=== PATIENT | male | born 1990 | race Hispanic/Latino ===

== ENCOUNTER 2018-06-25 21:55 | Emergency (ER) | payer SELFPAY ==
[2018-06-25 22:02] VITALS: BP 127/78; TEMP 98.1; O2SAT 96
--- NOTE | 2018-06-25 22:31 | ED PDOC ---
HPI: Psych/Substance Abuse Time Seen by Provider: 06/25/18 22:13 Chief Complaint (Nursing): Alcohol Ingestion Chief Complaint (Provider): Alcohol Intoxication ED Caveat: Intoxicated History Per: Patient, EMS ([facility]) History/Exam Limitations: intoxication Additional Complaint(s): Patient is a 27 year old male who presents to ED for evaluation of alcohol intoxication. Patient was found stumbling on the streets and was seen walking into a street sign by EMS. When EMS stopped the patient, he could not ambulate steadily, prompting ED evaluation. Patient admits to drinking "a lot of whiskey, too much whiskey". Patient has no physical complaints and denies substance abuse. Denies head injury, LOC. No reports of trauma. PMD: recently , patient has not gotten a new one yet Past Medical History Reviewed: Historical Data, Nursing Documentation, Vital Signs Vital Signs: Last Vital Signs Temp 98.1 F 06/25/18 22:02 Pulse 90 06/25/18 22:02 Resp 16 06/25/18 22:02 BP 127/78 06/25/18 22:02 Pulse Ox 96 06/25/18 22:02 - Medical History PMH: No Chronic Diseases - Surgical History Surgical History: No Surg Hx - Family History Family History: States: Unknown Family Hx - Social History Current smoker - smoking cessation education provided: No Alcohol: Social Drugs: Denies - Allergies Allergies/Adverse Reactions: Allergies Allergy/AdvReac Type Severity Reaction Status Date / Time No Known Allergies Allergy Verified 06/25/18 22:05 Review of Systems ROS Statement: Except As Marked, All Systems Reviewed And Found Negative Psych: Positive for: Other (alcohol intocation) Physical Exam - Reviewed Nursing Documentation Reviewed: Yes Vital Signs Reviewed: Yes - Physical Exam Appears: Positive for: Non-toxic, No Acute Distress (answers questions appropriately (+) odor of alcohol) Head Exam: Positive for: ATRAUMATIC, NORMOCEPHALIC Skin: Positive for: Normal Color, Warm, Dry Eye Exam: Positive for: EOMI, PERRL ENT: Positive for: Other (Airway patent, (-) stridor. ) Neck: Positive for: Painless ROM, Supple Cardiovascular/Chest: Positive for: Regular Rate, Rhythm Respiratory: Positive for: Normal Breath Sounds Gastrointestinal/Abdominal: Positive for: Soft. Negative for: Tenderness, Distended, Guarding Extremity: Positive for: Normal ROM. Negative for: Deformity Neurologic/Psych: Positive for: Alert, Oriented (x3), Mood/Affect (calm, intoxicated), Gait (unsteady in ED) - ECG O2 Sat by Pulse Oximetry: 96 (RA) Pulse Ox Interpretation: Normal Medical Decision Making Medical Decision Makin Initial Impression: Alcohol Intoxication Plan: -Utox -Accucheck -Serum alcohol -monitor for clinical sobriety -re-evaluation 2250 Patient keeps attempting to ambulate out of ED exam room. Gait is unsteady secondary to alcohol intoxication. Multiple attempts to get patient to stay in bed unsuccessful, 1:1 ordered. 2300 Patient still exiting ED stretcher. Ativan 2mg IM ordered. 2330 Accucheck: 103 Patient sleeping comfortably on re-evaluation. 1:1 discontinued. 0000 Case endorsed to Kwasi Romero PA-C. Patient pending clinical sobriety, further disposition. Disposition - Clinical Impression Clinical Impression: Alcohol intoxication - Patient ED Disposition Is Patient to be Admitted: Transfer of Care (Case endorsed to Kwasi Romero PA-C. Patient pending clinical sobriety, further disposition.) - Disposition Disposition: Transfer of Care (Case endorsed to Kwasi Romero PA-C. Patient pending clinical sobriety, further disposition.) Disposition Time: 00:00 Condition: FAIR - POA Present On Arrival: None
--- NOTE | 2018-06-26 00:57 | ED PDOC ---
- ECG O2 Sat by Pulse Oximetry: 96 (RA) - Progress ED Course And Treament: Patient re-examined at 05:55am. Noted alert/oriented. Disposition - Clinical Impression Clinical Impression: Alcohol intoxication - POA Present On Arrival: None - Disposition Disposition: Routine/Home Disposition Time: 05:56 Condition: FAIR Instructions: Alcohol Poisoning (DC)
[2018-06-26 06:08] VITALS: PULSE 84; RESP 18
== END 2018-06-26 06:07 | disposition home or self-care (01) ==
LOC: H.ER 21:55
DX: F10.129 Alcohol abuse with intoxication, unspecified (principal); Y90.8 Blood alcohol level of 240 mg/100 ml or more
CPT/HCPCS: 82948; 96372; 99283; G0480; J2060